=== PATIENT | female | born 1940 | race Caucasian/White ===

== ENCOUNTER 2024-12-03 14:16 | Emergency (ER) | payer MEDICARE, BC ==
[~2024-12-03] VITALS: Ht 154.9 cm; Wt 84.0 kg
[2024-12-03] MEDS ORDERED: IPRATROPIUM-Albuterol 0.5MG-2.5MG/3 ML NEB ONE ×2 (15:25)
[2024-12-03] MEDS ORDERED: methylPREDNISolone SODIUM SUCC 125 MG/2 ML SDV IV ONE (15:25)
[2024-12-03 15:57] LABS: BASO% 0.4 % (0-3); EOS% 6.8 % (0-8); HEMATOCRIT 41.3 % (37.0-47.0); HEMOGLOBIN 13.2 g/dl (12.0-16.0); IMMATURE GRANULOCYTES 0.1 % (0.0-5.0); LYMPH% 27.9 % (15-41); MEAN CELL VOLUME 93.4 fL CALC (80.0-100.0); MEAN CORPUSCULAR HGB 29.9 pG CALC (26.0-32.0); MONO% 6.9 % (2-13); NEUT# 5.96 thou/uL (2.00-7.15); NEUT% 57.9 % (42-76); RED BLOOD COUNT 4.42 mill/uL (4.20-5.60)
[2024-12-03 16:10] LABS: ALBUMIN 4.8 g/dL (3.2-5.0); ALKALINE PHOSPHATASE 51 u/l (38-126); ANION GAP 13 (6-22 (CALC)); BILIRUBIN, TOTAL 0.7 mg/dL (0.02-1.3); BUN 16 mg/dL (8-23); BUN/CREATININE RATIO 18 (12-20 (CALC)); CARBON DIOXIDE 25 mmol/l (22-30); CHLORIDE 104 mmol/l (95-108); CREATININE 0.9 mg/dL (0.5-1.0); ESTIMATED GFR 64 ML/MIN (>=90 (CALC)); POTASSIUM 4.3 mmol/l (3.5-5.1); SGOT/AST 44 u/l (9-36); SODIUM 138 mmol/l (137-146); TOTAL PROTEIN 8.3 g/dL (6.3-8.2)
[2024-12-03 16:30] VITALS: BP 126/59
[2024-12-03 16:46] VITALS: BP 122/46
[2024-12-03 17:00] VITALS: BP 126/70
[2024-12-03] MEDS ORDERED: IPRATROPIU0.5 MG/3 M IN (17:12)
[2024-12-03] MEDS ORDERED: MUCINEX1200 MG PO (17:12)
[2024-12-03] MEDS ORDERED: PREDNISONE50 MG PO (17:12)
[2024-12-03 17:15] VITALS: BP 127/82
[2024-12-03 17:32] VITALS: BP 127/82
== END 2024-12-03 17:35 | disposition home or self-care (01) ==
LOC: ED 14:16
PROVIDERS: Emergency Medicine
DX: J45.901 Unspecified asthma with (acute) exacerbation (principal); J44.89 Other specified chronic obstructive pulmonary disease; I10 Essential (primary) hypertension; E11.9 Type 2 diabetes mellitus without complications; Z20.822 Contact with and (suspected) exposure to COVID-19

== ENCOUNTER 2024-12-14 11:11 | Observation (INO) | payer MEDICARE, BC ==
[~2024-12-14] VITALS: Ht 154.9 cm; Wt 83.9 kg
[2024-12-14] VITALS (13 sets, daily range): BP systolic 126–157; BP diastolic 63–100
[~2024-12-14 11:11] MED LIST: IPRATROPIU0.5 MG/3 M IN; MUCINEX1200 MG PO; PREDNISONE50 MG PO
[2024-12-14] MEDS ORDERED: ONDANSETRON HCl 4 MG/2 ML SDV IV ONE (11:25)
[2024-12-14] MEDS ORDERED: SODIUM CHLORIDE 0.9% 1,000 ML IV ONE (11:25)
--- NOTE | 2024-12-14 11:50 | NUR ---
NURSE BEDSIDE TO COLLECT LABS
[2024-12-14 12:17] LABS: BASO% 0.1 % (0-3); EOS% 1.7 % (0-8); HEMATOCRIT 41.3 % (37.0-47.0); HEMOGLOBIN 13.2 g/dl (12.0-16.0); IMMATURE GRANULOCYTES 0.2 % (0.0-5.0); LYMPH% 14.1 % (15-41); MEAN CELL VOLUME 92.4 fL CALC (80.0-100.0); MEAN CORPUSCULAR HGB 29.5 pG CALC (26.0-32.0); MONO% 6.8 % (2-13); NEUT# 8.88 thou/uL (2.00-7.15); NEUT% 77.1 % (42-76); RED BLOOD COUNT 4.47 mill/uL (4.20-5.60); RED CELL DISTRI WIDTH 13.7 % (11.5-15.5)
[2024-12-14 12:41] LABS: ALBUMIN 4.3 g/dL (3.2-5.0); BILIRUBIN, TOTAL 0.7 mg/dL (0.02-1.3); CREATININE 0.7 mg/dL (0.5-1.0); TOTAL PROTEIN 7.3 g/dL (6.3-8.2)
[2024-12-14 12:45] LABS: POTASSIUM 3.3 mmol/l (3.5-5.1)
--- NOTE | 2024-12-14 13:55 | NUR ---
Reassessment of patient completed. No distress noted.
[2024-12-14] MEDS ORDERED: PROMETHAZINE HCL 25 MG/ML AMP IM ONE (14:00)
[2024-12-14] MEDS ORDERED: LOPERAMIDE HCL 2 MG CAP PO ONE (14:25)
[2024-12-14 14:58] LABS: URINE BILIRUBIN - DIPSTICK Negative (NEGATIVE); URINE BLOOD DIPSTICK Negative (NEGATIVE); URINE GLUCOSE - DIPSTICK Negative (NEGATIVE); URINE KETONE Negative (NEGATIVE); URINE LEUK ESTERASE Negative (NEGATIVE); URINE NITRITE - DIPSTICK Negative (Negative); URINE PROTEIN - DIPSTICK Negative (NEG-TRACE); URINE SPECIFIC GRAVITY <=1.005; URINE UROBILINOGEN - DIPSTICK 0.2 E.U./dL (0.2)
[2024-12-14 14:59] LABS: URINE COLOR Yellow
[2024-12-14] MEDS ORDERED: MAGNESIUM HYDROXIDE 30 ML UDC PO PRN (16:10)
[2024-12-14] MEDS ORDERED: ACETAMINOPHEN 325 MG/TAB PO PRN (16:10)
[2024-12-14] MEDS ORDERED: SODIUM CHLORIDE 0.9% 1,000 ML IV PRN (16:10)
[2024-12-14] MEDS ORDERED: OMEPRAZOLE DR40 MG (16:14)
[2024-12-14] MEDS ORDERED: INDERAL10 M1 PO (16:15)
[2024-12-14] MEDS ORDERED: KLOR-CON M2020 MEQ PO (16:15)
[2024-12-14] MEDS ORDERED: LOSARTAN POTASS50 MG PO (16:16)
[2024-12-14] MEDS ORDERED: DULOXETINE HCL60 MG (16:16)
[2024-12-14] MEDS ORDERED: LEVOTHYROXIN100 MCG PO (16:17)
[2024-12-14] MEDS ORDERED: METFORMIN HCL750 MG PO (16:17)
[2024-12-14] MEDS ORDERED: LASIX40 MG PO (16:18)
[2024-12-14] MEDS ORDERED: GABAPENTIN100 MG PO (16:18)
[2024-12-14] MEDS ORDERED: ALENDRONATE SOD70 MG PO (16:19)
[2024-12-14] MEDS ORDERED: FLONASE SE27.5 MCG/S (16:20)
[2024-12-14] MEDS ORDERED: ROSUVASTATIN CA20 MG (16:21)
[2024-12-14] MEDS ORDERED: SINGULAIR10 MG PO (16:21)
[2024-12-14] MEDS ORDERED: [UNRECOGNIZED DRUG - OTHER] (16:21)
[2024-12-14] MEDS ORDERED: XARELTO10 MG PO (16:22)
[2024-12-14] MEDS ORDERED: ZOFRAN4 MG/TAB PO (17:34)
--- NOTE | 2024-12-14 18:00 | NUR ---
Patient decides to leave AMA. Multiple attempts made to ecourage patient to remain here for continued treatment. Explained to patient all risks of leaving against medical advice including . Pt verbalized understanding of all risks. Pt also encouraged to return to [facility] at any time, especially if symptoms continue or become worse. Pt verbalized understanding.
[2024-12-14] MEDS ORDERED: ENOXAPARIN SODIUM 40 MG/0.4 ML SYR SC SCH (21:00)
== END 2024-12-14 18:19 | disposition left against medical advice (07) ==
LOC: ED 11:11 → ED-I 13:54 → ED 15:08 → ICU 15:09
PROVIDERS: Family Medicine; ADMIT Internal Medicine; ATTEND Internal Medicine
DX: E86.0 Dehydration (principal); R11.2 Nausea with vomiting, unspecified; R19.7 Diarrhea, unspecified; R10.84 Generalized abdominal pain; I10 Essential (primary) hypertension; E11.9 Type 2 diabetes mellitus without complications; E78.5 Hyperlipidemia, unspecified; J44.89 Other specified chronic obstructive pulmonary disease
CPT/HCPCS: J2405; J2550; Q9967